=== PATIENT | male | born 1970 | race Caucasian/White ===

== ENCOUNTER 2017-02-03 09:32 | Emergency (ER) | payer SELFPAY ==
[~2017-02-03] VITALS: Ht 180.3 cm; Wt 117.9 kg
[~2017-02-03 09:32] MED LIST: AC325T PO; ACET-2267 PO; HYDR-2997 PO; HYDR-3720 PO; IBUP200T48 PO; PANT40TA3 PO
[2017-02-03] MEDS ORDERED: NS IV 1000 ML 1,000 ML IV ONE ×2 (10:04→11:20)
--- NOTE | 2017-02-03 10:11 | ED Syncope ---
General Chief Complaint: Dizziness/Syncope Stated Complaint: SYNCOPE Nursing Triage Note: PT STATES HAS BEEN HAVING SYNCOPAL EPISODES FOR A COUPLE WEEKS Source of Information: Patient Exam Limitations: No Limitations History of Present Illness Time Seen by Provider: 09:57 Initial Comments Here with report of syncopal episode that he believed occurred today. States he was sitting on the couch and thinks he passed out first few seconds. He was seen at [place] couple weeks ago for the same states she's had several episodes in between. He was instructed to follow-up with a web consultant because he apparently had low heart rate at nighttime noted on a Holter monitor. He states he doesn't have insurance and is unable to get and at this point. Reports that he feels like is in a pass out right now. Reports eating and drinking okay. He did eat breakfast today. He reports having dizziness and episodes for the last 2 weeks. States this is all been fairly persistent. Timing/Prior Episodes: Recent History, Single Episode Today Symptoms Prior to Episode: Lightheadedness Precipitating Factors: None Loss of Consciousness: Brief (Seconds) Current Symptoms: No Chest Pain, No Headache, No Injury, Lightheadedness, Weakness Allergies and Home Medications Allergies Uncoded Allergies: UNKNOWN ANTI-NAUSEA (Allergy, Mild, 03/20/15) JITTERY/ANXIOUS possibly phenergan Home Medications Unable to Obtain Active Prescriptions or Reported Meds Constitutional: see HPI, No chills, No fever, weakness EENTM: no symptoms reported Respiratory: no symptoms reported Cardiovascular: see HPI, No chest pain, No palpitations, syncope Gastrointestinal: No nausea, No vomiting Genitourinary: no symptoms reported Musculoskeletal: no symptoms reported Skin: no symptoms reported Psychiatric/Neurological: See HPI All Other Systems Reviewed Negative Unless Noted: Yes Past Saenzto-Sbtirj-Fyktjz Hx Patient Social History Alcohol Use: Occasionally Uses Recreational Drug Use: No Smoking Status: Never a Smoker Recent Foreign Travel: No Contact w/Someone Who Travel: No Recent Infectious Disease Expo: No Recent Hopitalizations: No (for kidney stones) Seasonal Allergies Seasonal Allergies: No Surgeries HX Surgeries: Yes (BILATERAL INGUINAL HERNIA REPAIR) Surgeries: Abdominal Respiratory Hx Respiratory Disorders: No Cardiovascular Hx Cardiac Disorders: No Cardiac Disorders: Heart Murmur, Hypertension Neurological Hx Neurological Disorders: No Reproductive System Hx Reproductive Disorders: No Sexually Transmitted Disease: No HIV/AIDS: No Genitourinary Hx Genitourinary Disorders: No Gastrointestinal Hx Gastrointestinal Disorders: Yes Gastrointestinal Disorders: Gastrointestinal Bleed Musculoskeletal Hx Musculoskeletal Disorders: No Endocrine Hx Endocrine Disorders: No HEENT HX ENT Disorders: No Cancer Hx Cancer: No Psychosocial Hx Psychiatric Problems: No Integumentary HX Skin/Integumentary Disorder: No Blood Transfusions Hx Blood Disorders: No Adverse Reaction to a Blood Tr: No Reviewed Nursing Assessment Reviewed/Agree w Nursing PMH: Yes Family Medical History Significant Family History: Heart Disease Physical Exam Vital Signs Vital Sign - Last 12Hours 02/03/17 09:50 Temp 98.4 Pulse 85 Resp 14 B/P (MAP) 140/97 Pulse Ox 96 Capillary Refill : Less Than 3 Seconds General Appearance: No Apparent Distress, WD/WN HEENT: PERRL/EOMI, Pharynx Normal Neck: Non Tender, Supple Cardiovascular: Regular Rate, Rhythm, No Murmur Respiratory: Lungs Clear, Normal Breath Sounds Gastrointestinal: Non Tender, Soft Back: Normal Inspection, No CVA Tenderness, No Vertebral Tenderness Extremities: Non Tender, No Calf Tenderness, No Pedal Edema Neurologic/Psychiatric: Alert, Oriented x3 Cranial Nerves: Normal Hearing, Normal Speech, PERRL Coordination/Gait: Normal Gait Motor/Sensory: No Motor Deficit, No Sensory Deficit Skin: Normal Color, Warm/Dry Progress/Results/Core Measures Results/Orders Lab Results Laboratory Tests Test 02/03/17 10:10 02/03/17 11:30 Range/Units White Blood Count 6.1 4.3-11.0 10^3/uL Red Blood Count 5.38 4.35-5.85 10^6/uL Hemoglobin 16.3 13.3-17.7 G/DL Hematocrit 50 40-54 % Mean Corpuscular Volume 94 80-99 FL Mean Corpuscular Hemoglobin 30 25-34 PG Mean Corpuscular Hemoglobin Concent 32 32-36 G/DL Red Cell Distribution Width 13.3 10.0-14.5 % Platelet Count 206 130-400 10^3/uL Mean Platelet Volume 11.3 H 7.4-10.4 FL Neutrophils (%) (Auto) 64 42-75 % Lymphocytes (%) (Auto) 20 12-44 % Monocytes (%) (Auto) 12 0-12 % Eosinophils (%) (Auto) 2 0-10 % Basophils (%) (Auto) 1 0-10 % Neutrophils # (Auto) 3.9 1.8-7.8 X 10^3 Lymphocytes # (Auto) 1.2 1.0-4.0 X 10^3 Monocytes # (Auto) 0.8 0.0-1.0 X 10^3 Eosinophils # (Auto) 0.1 0.0-0.3 10^3/uL Basophils # (Auto) 0.1 0.0-0.1 10^3/uL D-Dimer 0.29 0.00-0.49 UG/ML Sodium Level 141 135-145 MMOL/L Potassium Level 4.7 3.6-5.0 MMOL/L Chloride Level 111 H 98-107 MMOL/L Carbon Dioxide Level 21 21-32 MMOL/L Anion Gap 9 5-14 MMOL/L Blood Urea Nitrogen 15 7-18 MG/DL Creatinine 1.32 H 0.60-1.30 MG/DL Estimat Glomerular Filtration Rate 58 BUN/Creatinine Ratio 11 Glucose Level 91 70-105 MG/DL Calcium Level 10.8 H 8.5-10.1 MG/DL Magnesium Level 2.5 H 1.8-2.4 MG/DL Total Bilirubin 0.9 0.1-1.0 MG/DL Aspartate Amino Transf (AST/SGOT) 25 5-34 U/L Alanine Aminotransferase (ALT/SGPT) 25 0-55 U/L Alkaline Phosphatase 132 40-136 U/L Troponin I < 0.30 <0.30 NG/ML Total Protein 7.2 6.4-8.2 G/DL Albumin 4.0 3.2-4.5 G/DL Thyroid Stimulating Hormone (TSH) 1.24 0.35-4.94 UIU/ML Urine Color YELLOW Urine Clarity CLEAR Urine pH 7 5-9 Urine Specific Matador 1.015 L 1.016-1.022 Urine Protein NEGATIVE NEGATIVE Urine Glucose (UA) NEGATIVE NEGATIVE Urine Ketones NEGATIVE NEGATIVE Urine Nitrite NEGATIVE NEGATIVE Urine Bilirubin NEGATIVE NEGATIVE Urine Urobilinogen NORMAL NORMAL MG/DL Urine Leukocyte Esterase NEGATIVE NEGATIVE Urine RBC (Auto) NEGATIVE NEGATIVE Urine RBC NONE /HPF Urine WBC NONE /HPF Urine Squamous Epithelial Cells NONE /HPF Urine Crystals PRESENT H /LPF Urine Amorphous Sediment LARGE BERNARDO URATES H /LPF Urine Bacteria NEGATIVE /HPF Urine Casts NONE /LPF Urine Mucus NEGATIVE /LPF Urine Culture Indicated NO My Orders Orders - GANESH RODRIGUEZ MD Orthostatic Vital Signs (02/03/17 10:04) Ekg Tracing (02/03/17 10:04) Monitor-Rhythm Ecg Trace Only (02/03/17 10:04) Cbc With Automated Diff (02/03/17 10:04) Comprehensive Metabolic Panel (02/03/17 10:04) Magnesium (02/03/17 10:04) Thyroid Stimulating Hormone (02/03/17 10:04) Troponin I (02/03/17 10:04) Saline Lock/Iv-Start (02/03/17 10:04) Ns Iv 1000 Ml (Sodium Chloride 0.9%) (02/03/17 10:04) Chest Pa/Lat (2 View) (02/03/17 10:04) Ua Culture If Indicated (02/03/17 10:11) Fibrin Degradation Products (02/03/17 11:10) Ns Iv 1000 Ml (Sodium Chloride 0.9%) (02/03/17 11:20) Ct Head Wo (02/03/17 12:33) Medications Given in ED Current Medications Medications Dose Ordered Sig/Mello Route Start Time Stop Time Status Last Admin Dose Admin Sodium Chloride 1,000 ml @ 0 mls/hr Q0M ONCE IV 02/03/17 10:04 02/03/17 10:07 DC 02/03/17 10:29 1,000 MLS/HR Sodium Chloride 1,000 ml @ 0 mls/hr Q0M ONCE IV 02/03/17 11:20 02/03/17 11:21 DC 02/03/17 11:25 1,000 MLS/HR Vital Signs/I&O Vital Sign - Last 12Hours 02/03/17 02/03/17 09:50 10:10 Temp 98.4 Pulse 85 69 87 99 Resp 14 B/P (MAP) 140/97 Pulse Ox 96 Blood Pressure Mean: 111 Progress Note : Progress Note Seen and evaluated. IV, labs, EKG and chest x-ray ordered. Normal saline 1 L bolus. Orthostatic vital signs ordered prior to IV fluids. Monitor patient. Patient received second 1 L bolus of normal saline as he was unable to urinate. 1230: No significant findings on labs. He has had some workup done and will need follow-up we will get CT of the head and evaluate findings there. Monitor patient. 1340: No acute findings on CT. Overall still doing a little better. Discharged home with return precautions. Patient verbalize understanding instructions and agreement with plan. ECG Initial ECG Impression Date: Feb 03, 2017 Initial ECG Impression Time: 10:18 Initial ECG Rate: 69 Initial ECG Rhythm: Normal Sinus Comment Sinus rhythm with leftward axis. No evidence of ST elevation MO. Similar to previous of 12/16/15. Interpreted by me. Diagnostic Imaging Diagonstic Imaging: Xray Plain Films/CT/US/NM/MRI: chest Comments NAME: [facility] REC#: [id number] PT STATUS: REG ER : 1970 PHYSICIAN: GANESH RODRIGUEZ MD ADMIT DATE: 02/03/17/ER Signed Date of Exam: 02/03/17 CHEST PA/LAT (2 VIEW) INDICATION: Syncopal episodes. COMPARISON: 12/14/2015 FINDINGS: 2 views of the chest were obtained. Heart size is enlarged, but unchanged. There is no central venous congestion. No pneumothorax or pleural fluid is suspected. Lung volumes are low. Allowing for this, lungs appear clear. No osseous abnormality is suspected. IMPRESSION: Stable borderline cardiomegaly. No new or acute abnormality is seen when compared to the prior study. Dictated by: Dictated on workstation # [id number] Dict: 02/03/17 1047 Trans: 02/03/17 1059 [id number] Interpreted by: JANE LUNA DO Electronically signed by:JANE LUNA DO 02/03/17 1059 Diagonstic Imaging: CT Plain Films/CT/US/NM/MRI: head Comments [facility] [place] NAME: [facility] REC#: [id number] PT STATUS: REG ER : 1970 PHYSICIAN: GANESH RODRIGUEZ MD ADMIT DATE: 02/03/17/ER Draft Date of Exam:02/03/17 CT HEAD WO PROCEDURE: CT head without contrast. TECHNIQUE: Multiple contiguous axial images were obtained through the brain without the use of intravenous contrast. INDICATION: Syncopal episodes. No comparison is available. FINDINGS: There is no CT demonstration of acute intracranial hemorrhage. There is no evidence of intracranial mass effect or hydrocephalus. There is no abnormal extra-axial fluid collection. Basilar cisterns patent. The posterior fossa is unremarkable. Mastoid air cells appear clear. Visualized paranasal sinuses clear. Orbital contents unremarkable. No acute calvarial abnormality is demonstrated. IMPRESSION: No CT evidence of an acute intracranial abnormality. Dictated on workstation # [id number] Dict: 02/03/17 1247 Trans: 02/03/17 1252 [id number] Interpreted by: PABLITO BETANCOURT MD Electronically signed by: Departure Impression Impression: Primary Impression: Dizziness Additional Impression: Syncope Qualified Codes: R55 - Syncope and collapse Disposition: 01 HOME, SELF-CARE Condition: Stable Departure-Patient Inst. Decision time for Depature: 13:43 Referrals: [facility] (PCP/Family) Primary Care Physician ZEKE RODNEY MD Patient Instructions: Syncope (Fainting) (DC) Add. Discharge Instructions: All discharge instructions reviewed with patient and/or family. Voiced understanding. Drink plenty of fluids and eat a normal diet. Follow-up with Dr. Rodney for recheck and further evaluation. Return for worse pain, fever, vomiting, weakness, breathing problems or other concerns as needed. Scripts Unable to Obtain Active Prescriptions or Reported Meds Copy Copies To 1: ZEKE RODNEY MD, TIMOTHY D MD Feb 03, 2017 10:11
[2017-02-03 10:21] LABS: BASOPHILS # (AUTO) 0.1 10^3/uL (0.0-0.1); BASOPHILS % (AUTO) 1 % (0-10); EOSINOPHILS # (AUTO) 0.1 10^3/uL (0.0-0.3); EOSINOPHILS % (AUTO) 2 % (0-10); LYMPHOCYTES # (AUTO) 1.2 X 10^3 (1.0-4.0); LYMPHOCYTES % (AUTO) 20 % (12-44); MEAN CORPUSCULAR HEMOGLOBIN 30 PG (25-34); MEAN CORPUSCULAR HGB CONC 32 G/DL (32-36); MEAN CORPUSCULAR VOLUME 94 FL (80-99); MEAN PLATELET VOLUME 11.3 FL (7.4-10.4); MONOCYTES # (AUTO) 0.8 X 10^3 (0.0-1.0); MONOCYTES % (AUTO) 12 % (0-12); NEUTROPHILS # (AUTO) 3.9 X 10^3 (1.8-7.8); NEUTROPHILS % (AUTO) 64 % (42-75); PLATELET COUNT 206 10^3/uL (130-400); RED BLOOD COUNT 5.38 10^6/uL (4.35-5.85); RED CELL DISTRIBUTION WIDTH 13.3 % (10.0-14.5); WHITE BLOOD COUNT 6.1 10^3/uL (4.3-11.0)
[2017-02-03 10:38] LABS: ALANINE AMINOTRANSFERASE 25 U/L (0-55); ANION GAP 9 MMOL/L (5-14); ASPARTATE AMINO TRANSFERASE 25 U/L (5-34); BILIRUBIN,TOTAL 0.9 MG/DL (0.1-1.0); BLOOD UREA NITROGEN 15 MG/DL (7-18); BUN/CREATININE RATIO 11; CALCIUM 10.8 MG/DL (8.5-10.1); CARBON DIOXIDE 21 MMOL/L (21-32); CHLORIDE 111 MMOL/L (98-107); CREATININE SERUM 1.32 MG/DL (0.60-1.30); GFR ESTIMATED 58; GLUCOSE 91 MG/DL (70-105); MAGNESIUM 2.5 MG/DL (1.8-2.4); POTASSIUM 4.7 MMOL/L (3.6-5.0); SODIUM 141 MMOL/L (135-145); TOTAL PROTEIN 7.2 G/DL (6.4-8.2)
[2017-02-03 10:57] LABS: THYROID STIMULATING HORMONE 1.24 UIU/ML (0.35-4.94); TROPONIN I < 0.30 NG/ML (<0.30)
--- NOTE | 2017-02-03 10:59 | Diagnostic Imaging Report ---
INDICATION: Syncopal episodes. COMPARISON: 12/14/2015 FINDINGS: 2 views of the chest were obtained. Heart size is enlarged, but unchanged. There is no central venous congestion. No pneumothorax or pleural fluid is suspected. Lung volumes are low. Allowing for this, lungs appear clear. No osseous abnormality is suspected. IMPRESSION: Stable borderline cardiomegaly. No new or acute abnormality is seen when compared to the prior study. Dictated by: Dictated on workstation # [id number]
[2017-02-03 11:36] LABS: BILIRUBIN,URINE NEGATIVE (NEGATIVE); KETONES,URINE NEGATIVE (NEGATIVE); LEUKOCYTE ESTERASE ,URINE NEGATIVE (NEGATIVE); NITRITE,URINE NEGATIVE (NEGATIVE); PH,URINE 7 (5-9); PROTEIN,URINE NEGATIVE (NEGATIVE); UROBILINOGEN,URINE NORMAL (NORMAL)
--- NOTE | 2017-02-03 12:52 | Diagnostic Imaging Report ---
PROCEDURE: CT head without contrast. TECHNIQUE: Multiple contiguous axial images were obtained through the brain without the use of intravenous contrast. INDICATION: Syncopal episodes. No comparison is available. FINDINGS: There is no CT demonstration of acute intracranial hemorrhage. There is no evidence of intracranial mass effect or hydrocephalus. There is no abnormal extra-axial fluid collection. Basilar cisterns patent. The posterior fossa is unremarkable. Mastoid air cells appear clear. Visualized paranasal sinuses clear. Orbital contents unremarkable. No acute calvarial abnormality is demonstrated. IMPRESSION: No CT evidence of an acute intracranial abnormality. Dictated by: Dictated on workstation # [id number]
[2017-02-03 13:51] VITALS: BP 120/79
--- OUTSIDE RECORDS SUMMARY | 2017-03-11 04:46 | XMS REPORT | Continuity of Care Document ---
Author Author [facility] Organization [facility] Address Unknown Phone Unavailable Allergies Active Description Code Type Severity Reaction Onset Reported/Identified Relationship to Patient Clinical Status Yes UNKNOWN ANTI-NAUSEA UNKNOWN ANTI- NAUSEA Mild N/A 03/20/2015 Medications Problems Date Dx Coded Attending Type Code Diagnosis Diagnosed By 03/18/2012 Ot 592.1 CALCULUS OF URETER 03/18/2012 Ot 724.5 BACKACHE NOS 01/11/2013 Ot 724.2 LUMBAGO 03/20/2015 MARCELLA DAVIS DO Ot 569.3 RECTAL ANAL HEMORRHAGE 04/01/2015 SADA RODRIGUEZ MD Ot 592.1 CALCULUS OF URETER 04/01/2015 SADA RODRIGUEZ MD Ot 789.03 ABDOMINAL PAIN, RIGHT LOWER QUADRANT 12/16/2015 ZEKE HOPKINS MD Ot E66.9 OBESITY, UNSPECIFIED 12/16/2015 ZEKE HOPKINS MD Ot E78.5 HYPERLIPIDEMIA, UNSPECIFIED 12/16/2015 ZEKE HOPKINS MD Ot I10 ESSENTIAL (PRIMARY) HYPERTENSION 12/16/2015 ZEKE HOPKINS MD Ot I25.10 ATHSCL HEART DISEASE OF [place] CORONARY 12/16/2015 ZEKE HOPKINS MD Ot N20.2 CALCULUS OF KIDNEY WITH CALCULUS OF URET 12/16/2015 ZEKE HOPKINS MD Ot R06.00 DYSPNEA, UNSPECIFIED 12/16/2015 ZEKE HOPKINS MD Ot R07.89 OTHER CHEST PAIN 12/16/2015 ZEKE HOPKINS MD Ot R94.39 ABNORMAL RESULT OF OTHER CARDIOVASCULAR 12/16/2015 ZEKE HOPKINS MD Ot Z68.37 BODY MASS INDEX (BMI) 37.0-37.9, ADULT 12/16/2015 ZEKE HOPKINS MD Ot Z82.49 FAMILY HX OF ISCHEM HEART DIS AND OTH DI 02/03/2017 GANESH RODRIGUEZ MD Ot I10 ESSENTIAL (PRIMARY) HYPERTENSION 02/03/2017 GANESH RODRIGUEZ MD, Ot I51.7 CARDIOMEGALY 02/03/2017 GANESH RODRIGUEZ MD, Ot R42 DIZZINESS AND GIDDINESS 02/03/2017 GANESH RODRIGUEZ MD, Ot R55 SYNCOPE AND COLLAPSE Procedures Results Test Result Range Complete blood count (CBC) with automated white blood cell (WBC) differential - 02/03/17 10:10 Blood leukocytes automated count (number/volume) 6.1 10*3/ uL 4.3-11.0 Blood erythrocytes automated count (number/volume) 5.38 10*6 /uL 4.35-5.85 Venous blood hemoglobin measurement (mass/volume) 16.3 g/dL 13.3-17.7 Blood hematocrit (volume fraction) 50 % 40-54 Automated erythrocyte mean corpuscular volume 94 [foz_us] 80-99 Automated erythrocyte mean corpuscular hemoglobin (mass per erythrocyte) 30 pg 25-34 Automated erythrocyte mean corpuscular hemoglobin concentration measurement ( mass/volume) 32 g/dL 32-36 Automated erythrocyte distribution width ratio 13.3 % 10.0-14.5 Automated blood platelet count (count/volume) 206 10*3/uL 130-400 Automated blood platelet mean volume measurement 11.3 [foz_ us] 7.4-10.4 Automated blood neutrophils/100 leukocytes 64 % 42-75 Automated blood lymphocytes/100 leukocytes 20 % 12-44 Blood monocytes/100 leukocytes 12 % 0-12 Automated blood eosinophils/100 leukocytes 2 % 0-10 Automated blood basophils/100 leukocytes 1 % 0-10 Blood neutrophils automated count (number/volume) 3.9 10*3 1.8-7.8 Blood lymphocytes automated count (number/volume) 1.2 10*3 1.0-4.0 Blood monocytes automated count (number/volume) 0.8 10*3 0.0-1.0 Automated eosinophil count 0.1 10*3/uL 0.0-0.3 Automated blood basophil count (count/volume) 0.1 10*3/uL 0.0-0.1 Comprehensive metabolic panel - 02/03/17 10:10 Serum or plasma sodium measurement (moles/volume) 141 mmol/ L 135-145 Serum or plasma potassium measurement (moles/volume) 4.7 mmol/L 3.6-5.0 Serum or plasma chloride measurement (moles/volume) 111 mmol /L 98-107 Carbon dioxide 21 mmol/L 21-32 Serum or plasma anion gap determination (moles/volume) 9 mmol/L 5-14 Serum or plasma urea nitrogen measurement (mass/volume) 15 mg/dL 7-18 Serum or plasma creatinine measurement (mass/volume) 1.32 mg /dL 0.60-1.30 Serum or plasma urea nitrogen/creatinine mass ratio 11 NRG Serum or plasma creatinine measurement with calculation of estimated glomerular filtration rate 58 NRG Serum or plasma glucose measurement (mass/volume) 91 mg/dL 70-105 Serum or plasma calcium measurement (mass/volume) 10.8 mg/ dL 8.5-10.1 Serum or plasma total bilirubin measurement (mass/volume) 0.9 mg/dL 0.1-1.0 Serum or plasma alkaline phosphatase measurement (enzymatic activity/volume) 132 U/L 40-136 Serum or plasma aspartate aminotransferase measurement (enzymatic activity/ volume) 25 U/L 5-34 Serum or plasma alanine aminotransferase measurement (enzymatic activity/volume ) 25 U/L 0-55 Serum or plasma protein measurement (mass/volume) 7.2 g/dL 6.4-8.2 Serum or plasma albumin measurement (mass/volume) 4.0 g/dL 3.2-4.5 Magnesium - 02/03/17 10:10 Magnesium 2.5 mg/dL 1.8-2.4 Serum or plasma troponin i.cardiac measurement (mass/volume) - 02/03/17 10:10 Serum or plasma troponin i.cardiac measurement (mass/volume) < ng/mL <0.30 THYROID STIMULATING HORMONE - 02/03/17 10:10 THYROID STIMULATING HORMONE 1.24 u[iU]/mL 0.35-4.94 Fibrin D-dimer FEU measurement in platelet poor plasma (mass/volume) - 10:10 Fibrin D-dimer FEU measurement in platelet poor plasma (mass/volume) 0.29 ug/mL 0.00-0.49 Complete urinalysis with reflex to culture - 02/03/17 11:30 Urine color determination YELLOW NRG Urine clarity determination CLEAR NRG Urine pH measurement by test strip 7 5- 9 Specific gravity of urine by test strip 1.015 1.016-1.022 Urine protein assay by test strip, semi-quantitative NEGATIVE NEGATIVE Urine glucose detection by automated test strip NEGATIVE NEGATIVE Erythrocytes detection in urine sediment by light microscopy NEGATIVE NEGATIVE Urine ketones detection by automated test strip NEGATIVE NEGATIVE Urine nitrite detection by test strip NEGATIVE NEGATIVE Urine total bilirubin detection by test strip NEGATIVE NEGATIVE Urine urobilinogen measurement by automated test strip (mass/volume) NORMAL NORMAL Urine leukocyte esterase detection by dipstick NEGATIVE NEGATIVE Automated urine sediment erythrocyte count by microscopy (number/high power field) NONE NRG Automated urine sediment leukocyte count by microscopy (number/high power field ) NONE NRG Bacteria detection in urine sediment by light microscopy NEGATIVE NRG Squamous epithelial cells detection in urine sediment by light microscopy NONE NRG Crystals detection in urine sediment by light microscopy PRESENT NRG Casts detection in urine sediment by light microscopy NONE NRG Mucus detection in urine sediment by light microscopy NEGATIVE NRG Complete urinalysis with reflex to culture NO NRG Amorphous sediment detection in urine sediment by light microscopy LARGE BERNARDO URATES NRG Encounters ACCT No. Visit Date/Time Discharge Status Pt. Type Provider Facility Loc./Unit Complaint [id number] 02/03/2017 09:33:00 2016 13:51:00 DIS Emergency GANESH RODRIGUEZ MD [facility] ER SYNCOPE [id number] 12/14/2015 11:35:00 2015 20:08:00 DIS Outpatient KELLIE KC, ZEKE Felder [facility] CATH CHEST PAIN [id number] 04/01/2015 10:03:00 2014 15:21:00 DIS Emergency SADA RODRIGUEZ MD [facility] ER RIGHT SIDE PAIN [id number] 03/20/2015 10:09:00 2014 12:38:00 DIS Emergency RYAN DOMARCELLA K [facility] ER VOIDING BLOOD [id number] 03/05/2017 11:15:00 PEN Preadmit YOHANA NOEL APRN [facility] CARD R55 [id number] 03/05/2017 10:00:00 PEN Preadmit YOHANA NOEL APRN [facility] CARD I10,R55 [id number] 01/11/2013 08:35:00 Document Registration [id number] 03/17/2012 12:16:00 Document Registration
== END 2017-02-03 13:51 | disposition home or self-care (01) ==
LOC: EDUNIT# 09:32 → ER 09:33
DX: R55 Syncope and collapse (principal); R42 Dizziness and giddiness; I51.7 Cardiomegaly; I10 Essential (primary) hypertension
CPT/HCPCS: 36415; 70450; 71020; 80053; 81000; 83735; 84443; 84484; 85025; 85379; 93005; 93041; 96360; 96361

== ENCOUNTER 2017-12-30 19:18 | Emergency (ER) | payer SELFPAY ==
[~2017-12-30] VITALS: Ht 180.3 cm; Wt 118.1 kg
--- OUTSIDE RECORDS SUMMARY | 2017-12-30 19:43 | XMS REPORT ---
Author Author YOHANA NOEL Organization [facility] Address [address] [place] [address] Care Team Providers Care Orientor Name Role Phone YOHANA NOEL Unavailable PROBLEMS Type Condition ICD9-CM Code CQV68-SD Code Onset Dates Condition Status SNOMED Code Problem History of elevated blood pressure while in hospital Z86.79 Active 955673239 Problem Chest discomfort R07.89 Active 334837093 Problem Hyperlipidemia LDL goal <100 E78.5 Active 92011884 Problem Syncope and collapse R55 Active 711531145 Problem Dyspnea R06.00 Active 002979945 Problem Palpitation R00.2 Active 43837519 Problem Essential hypertension I10 Active 16343094 Problem Fatigue R53.83 Active 38967217 ALLERGIES No Information SOCIAL HISTORY Never Assessed PLAN OF CARE VITAL SIGNS MEDICATIONS Medication Instructions Dosage Frequency Start Date End Date Duration Status Atorvastatin Calcium 10 mg Orally Once a day 1 tablet 24h February, 30 day(s) Active Metformin HCl 500 mg Orally Once a day 1 tablet with evening meal 24h February, 30 day(s) Active RESULTS No Results PROCEDURES No Known procedures IMMUNIZATIONS No Known Immunizations MEDICAL (GENERAL) HISTORY Type Description Date Medical History heart murmur Surgical History inguinal hernia repair Surgical History Heart Cath and Treadmill Normal [facility] Hospitalization History [facility] Chest Pain x3 nights
--- OUTSIDE RECORDS SUMMARY | 2017-12-30 19:43 | XMS REPORT ---
Author Author SUDHAKAR RANGEL Organization [facility] Address [address] [place] [address] Care Team Providers Care Budget Officer Name Role Phone SUDHAKAR RANGEL Unavailable PROBLEMS Type Condition ICD9-CM Code [id number] Code Onset Dates Condition Status SNOMED Code Problem History of elevated blood pressure while in hospital Z86.79 Active 628407952 Problem Chest discomfort R07.89 Active 686998142 Problem Hyperlipidemia LDL goal <100 E78.5 Active 51794472 Problem Syncope and collapse R55 Active 764705234 Problem Dyspnea R06.00 Active 368085991 Problem Palpitation R00.2 Active 10086982 Problem Essential hypertension I10 Active 22720790 Problem Fatigue R53.83 Active 16232376 ALLERGIES Substance Reaction Event Type Date Status Zofran ODT Unknown Drug Allergy February, Active SOCIAL HISTORY Never Assessed PLAN OF CARE Activity Details Follow Up 2 months Reason:BP VITAL SIGNS Height 71 in 2017-03-21 Weight 272.7 lbs 2017-03-21 Temperature 98.3 degrees Fahrenheit 2017-03-21 Heart Rate 84 bpm 2017-03-21 Respiratory Rate 20 2017-03-21 BMI 38.03 kg/m2 2017-03-21 Blood pressure systolic 122 mmHg 2017-03-21 Blood pressure diastolic 78 mmHg 2017-03-21 MEDICATIONS Medication Instructions Dosage Frequency Start Date End Date Duration Status Atorvastatin Calcium 10 mg Orally Once a day 1 tablet 24h February, 30 day(s) Active Metformin HCl 500 mg Orally Once a day 1 tablet with evening meal 24h February, 30 day(s) Active Lisinopril 10 mg Orally Once a day 1 tablet 24h 30 day(s) Active RESULTS No Results PROCEDURES No Known procedures IMMUNIZATIONS No Known Immunizations MEDICAL (GENERAL) HISTORY Type Description Date Medical History heart murmur Surgical History inguinal hernia repair Surgical History Heart Cath and Treadmill Normal [facility] Hospitalization History [facility] Chest Pain x3 nights
--- OUTSIDE RECORDS SUMMARY | 2017-12-30 19:44 | XMS REPORT | Continuity of Care Document ---
Author Author [facility] Organization [facility] Address Unknown Phone Unavailable Allergies Active Description Code Type Severity Reaction Onset Reported/Identified Relationship to Patient Clinical Status Yes UNKNOWN ANTI-NAUSEA UNKNOWN ANTI-NAUSEA Mild N/A 03/20/2015 Medications There is no data. Problems Date Dx Coded Attending Type Code [...] MD Ot I25.10 ATHSCL HEART DISEASE OF [place] CORONARY 12/16/2015 ZEKE HOPKINS MD Ot N20.2 [...] MD Ot I10 ESSENTIAL (PRIMARY) HYPERTENSION 02/03/2017 MICHAEL KC, GANESH Rader Ot I51.7 CARDIOMEGALY 02/03/2017 MICHAEL KC, GANESH Rader Ot R42 DIZZINESS AND GIDDINESS 02/03/2017 MICHAEL KC, GANESH Rader Ot R55 SYNCOPE AND COLLAPSE Procedures There is no data. Results Test Result Range Complete blood count (CBC) with automated white blood cell (WBC) differential - 02/03/17 10:10 Blood leukocytes automated count (number/volume) 6.1 10*3/uL 4.3-11.0 Blood erythrocytes automated count (number/volume) 5.38 10*6/uL 4.35-5.85 Venous blood hemoglobin measurement (mass/volume) 16.3 [...] Automated blood platelet mean volume measurement 11.3 [foz_us] 7.4-10.4 Automated blood neutrophils/100 leukocytes 64 % [...] Serum or plasma sodium measurement (moles/volume) 141 mmol/L 135-145 Serum or plasma potassium measurement (moles/volume) 4.7 mmol/L 3.6-5.0 Serum or plasma chloride measurement (moles/volume) 111 mmol/L 98-107 Carbon dioxide 21 mmol/L 21-32 Serum or plasma anion gap determination (moles/volume) 9 mmol/L 5-14 Serum or plasma urea nitrogen measurement (mass/volume) 15 mg/dL 7-18 Serum or plasma creatinine measurement (mass/volume) 1.32 mg/dL 0.60-1.30 Serum or plasma urea nitrogen/creatinine mass ratio 11 NRG Serum or plasma creatinine measurement with calculation of estimated glomerular filtration rate 58 NRG Serum or plasma glucose measurement (mass/volume) 91 mg/dL 70-105 Serum or plasma calcium measurement (mass/volume) 10.8 mg/dL 8.5-10.1 Serum or plasma total bilirubin measurement [...] or plasma troponin i.cardiac measurement (mass/volume) < ng/ mL <0.30 THYROID STIMULATING HORMONE - 02/03/17 10:10 THYROID STIMULATING HORMONE 1.24 u[iU]/mL 0.35-4.94 Fibrin D-dimer FEU measurement in platelet poor plasma (mass/volume) - 10:10 Fibrin D-dimer FEU measurement in platelet poor plasma (mass/volume) 0.29 ug/mL 0.00-0.49 Complete urinalysis with reflex to culture - 02/03/17 11:30 Urine color determination YELLOW NRG Urine clarity determination CLEAR NRG Urine pH measurement by test strip 7 5-9 Specific gravity of urine by test strip 1.015 1.016- 1.022 Urine protein assay by test strip, semi-quantitative [...] Status Pt. Type Provider Facility Loc./Unit Complaint [id number] 03/05/2017 11:15:00 03/05/2017 23:59:59 CLS Preadmit YOHANA NOEL [facility]EN [facility] CARD R55 [id number] 03/05/2017 10:00:00 03/05/2017 23:59:59 CLS Preadmit YOHANA NOEL [place] CARD I10,R55 [id number] 02/03/2017 09:33:00 02/03/2017 13:51:00 DIS Emergency GANESH RODRIGUEZ MD [facility] ER SYNCOPE [id number] 12/14/2015 11:35:00 12/16/2015 20:08:00 DIS Outpatient KELLIE KC, ZEKE Felder [facility] CATH CHEST PAIN [id number] 04/01/2015 10:03:00 04/01/2015 15:21:00 DIS Emergency SADA RODRIGUEZ MD [facility] ER RIGHT SIDE PAIN [id number] 03/20/2015 10:09:00 03/20/2015 12:38:00 DIS Emergency MARCELLA DAVIS DO [facility] ER VOIDING BLOOD [id number] 12/30/2017 19:21:00 ACT Emergency MICHAEL KC, GANESH Rader [facility] ER R WRIST INJ [id number] 01/11/2013 08:35:00 Document Registration [id number] 03/17/2012 12:16:00 Document Registration
[2017-12-30 19:47] VITALS: BP 139/96
--- NOTE | 2017-12-30 20:21 | Diagnostic Imaging Report ---
Clinical indication: Patient with right wrist pain. No known injury. Exam: X-ray of the right wrist, 3 views. Comparison: None. Findings and impression: 1: There is a 3 mm x 1 mm radiodense metallic foreign object overlying the soft tissue region of the distal first proximal phalanx. Clinical correlation is suggested. 2: There is no evidence of acute fracture or dislocation. Otherwise, there is no significant bone or joint abnormality. Dictated by: Dictated on workstation # [id number]
--- NOTE | 2017-12-30 20:31 | ED Upper Extremity ---
General Chief Complaint: Upper Extremity Stated Complaint: R WRIST INJ Nursing Triage Note: c/o R wrist pain Nursing Sepsis Screen: No Definite Risk History of Present Illness Date Seen by Provider: Dec 30, 2017 Time Seen by Provider: 19:50 Initial Comments 47-year-old male reports falling today onto his right wrist. He denies previous history of injuries to his right hand, he is right-hand dominant. He denies taking any pain medication prior to arrival. He does report drinking several beers today, and alcohol can be smelled on the patient's breath. Onset: this afternoon Severity: mild Pain/Injury Location: right wrist Method of Injury: fell Modifying Factors: Improves With Rest Allergies and Home Medications Allergies Uncoded Allergies: UNKNOWN ANTI-NAUSEA (Allergy, Mild, 03/20/15) JITTERY/ANXIOUS possibly phenergan Home Medications Unable to Obtain Active Prescriptions or Reported Meds Patient Home Medication List Home Medication List Reviewed: Yes Constitutional: no symptoms reported, see HPI Musculoskeletal: see HPI, joint pain (right wrist) All Other Systems Reviewed Negative Unless Noted: Yes Past Qgmpmdv-Fecutl-Olnrke Hx Patient Social History Alcohol Use: Denies Use Recreational Drug Use: No Smoking Status: Never a Smoker Recent Foreign Travel: No Contact w/Someone Who Travel: No Recent Infectious Disease Expo: No Recent Hopitalizations: No (for kidney stones) Seasonal Allergies Seasonal Allergies: No Surgeries History of Surgeries: Yes (BILATERAL INGUINAL HERNIA REPAIR) Surgeries: Abdominal Respiratory History of Respiratory Disorde: No Cardiovascular History of Cardiac Disorders: No Cardiac Disorders: Heart Murmur, Hypertension Neurological History of Neurological Disord: No Reproductive System Hx Reproductive Disorders: No Sexually Transmitted Disease: No HIV/AIDS: No Gastrointestinal History of Gastrointestinal Di: Yes Gastrointestinal Disorders: Gastrointestinal Bleed Musculoskeletal History of Musculoskeletal Dis: No Endocrine History of Endocrine Disorders: No Cancer History of Cancer: No Psychosocial History of Psychiatric Problem: No Integumentary History of Skin or Integumenta: No Blood Transfusions History of Blood Disorders: No Adverse Reaction to a Blood Tr: No Reviewed Nursing Assessment Reviewed/Agree w Nursing PMH: Yes Family Medical History Significant Family History: Heart Disease Physical Exam Vital Signs Vital Signs - First Documented 12/30/17 19:47 Temp 98.2 Pulse 86 Resp 18 B/P (MAP) 139/96 (110) Pulse Ox 94 Capillary Refill : Less Than 3 Seconds General Appearance: WD/WN, no apparent distress Cardiovascular: normal peripheral pulses, regular rate, rhythm, no murmur Respiratory: chest non-tender, lungs clear, normal breath sounds Gastrointestinal: normal bowel sounds, non tender, soft Wrist: No abrasions, Yes bone tenderness (distal radius, right), Yes limited ROM (right wrist secondary to pain), No mass, Yes pain, Yes soft tissue tenderness (right wrist), Yes swelling Hand: normal inspection, non-tender, no evidence of injury, normal ROM, Right Neurologic/Tendon: normal sensation, normal motor functions, normal tendon functions Neurologic/Psychiatric: no motor/sensory deficits, alert, normal mood/affect, oriented x 3 Skin: normal color, warm/dry Progress/Results/Core Measures Results/Orders My Orders Orders - LIDYA BARTON Wrist, Right, 3 Views Or More (12/30/17 19:50) Vital Signs/I&O Vital Sign - Last 12Hours 12/30/17 19:47 Temp 98.2 Pulse 86 Resp 18 B/P (MAP) 139/96 (110) Pulse Ox 94 Blood Pressure Mean: 110 Progress Note : Time: 19:50 Progress Note Initial evaluation completed, recommended x-ray and reevaluation. 2030 patient returned from x-ray, patient walked to discharge and out of emergency department without contacting any employees. Registration staff reports he was with another person. Upon going into the parking lot the patient was not found to be present. Diagnostic Imaging Diagonstic Imaging: Xray Plain Films/CT/US/NM/MRI: other (right wrist) Comments NAME: NAYLA HESS [facility] REC#: [id number] PT STATUS: REG ER : 1970 PHYSICIAN: LIDYA BARTON ADMIT DATE: 12/30/17/ER Draft Date of Exam:12/30/17 WRIST, RIGHT, 3 VIEWS OR MORE Clinical indication: Patient with right wrist pain. No known injury. Exam: X-ray of the right wrist, 3 views. Comparison: None. Findings and impression: 1: There is a 3 mm x 1 mm radiodense metallic foreign object overlying the soft tissue region of the distal first proximal phalanx. Clinical correlation is suggested. 2: There is no evidence of acute fracture or dislocation. Otherwise, there is no significant bone or joint abnormality. Dictated on workstation # [id number] Dict: 12/30/172014 Trans: 12/30/172019 [facility] [id number] Interpreted by: KAYLEE HAMILTON MD Electronically signed by: Reviewed: Reviewed by Me (metallic foreign body at the distal phalanx of the right thumb, not at the area of the patient's tenderness at his wrists.) Departure Impression Impression: Primary Impression: Right wrist pain Disposition: 07 AGAINST MEDICAL ADVICE Condition: Stable Departure-Patient Inst. Decision time for Depature: 20:30 Referrals: [facility] (PCP/Family) Primary Care Physician Scripts Unable to Obtain Active Prescriptions or Reported Meds Copy Copies To 1: ADAM RAMEY MD, AMY ARNP Dec 30, 2017 20:31
== END 2017-12-30 20:32 | disposition left against medical advice (07) ==
LOC: EDUNIT# 19:18 → ER 19:21
DX: M25.531 Pain in right wrist (principal); I10 Essential (primary) hypertension; Z87.19 Personal history of other diseases of the digestive system; W19.XXXA Unspecified fall, initial encounter
CPT/HCPCS: 73110; 99282

== ENCOUNTER 2018-11-26 22:24 | Emergency (ER) | payer SELFPAY ==
[~2018-11-26] VITALS: Ht 180.3 cm; Wt 117.9 kg
--- OUTSIDE RECORDS SUMMARY | 2018-11-26 22:29 | XMS REPORT ---
Author Author ANKITA PERALES Organization [facility] Address [address] [place] [address] Care Team Providers Care Tubing Tester Name Role Phone ANKITA PERALES Unavailable PROBLEMS Type Condition ICD9-CM Code TGT69-IW Code Onset Dates Condition Status SNOMED Code Problem Hypercalcemia E83.52 Active 37157890 Problem Primary hypertension I10 Active 02884952 Problem Fatigue R53.83 Active 05623470 Problem Hyperlipidemia LDL goal <100 E78.5 Active 08306747 Problem Syncope and collapse R55 Active 756540587 ALLERGIES Substance Reaction Event Type Date Status Zofran ODT Unknown Drug Allergy Apr, Active ENCOUNTERS Encounter Location Date Diagnosis [place] [id number] [id number] [place] [address] May, Right lateral epicondylitis M77.11 [facility] [id number] [place] [address] 96376- 5848 May, [place] [id number] [place] [address] 76631- [address]87 Apr, [place] [address] [id number] [place] [address] 58640- 5362 Apr, Hypercalcemia E83.52 [facility] [id number] [place] [address] 34181- 8576 Apr, Primary hypertension I10 and Hypercalcemia E83.52 [facility] [id number] [place] [address] 38581- 3562 Apr, Primary hypertension I10 ; Lateral epicondylitis of right elbow M77.11 and Hyperlipidemia LDL goal <100 E78.5 [place] [id number] [place] [address] 92313- 5647 February, Essential hypertension I10 ; Pre-diabetes R73.03 ; Hyperlipidemia LDL goal <100 E78.5 and Abnormal EKG R94.31 [place] [id number] [place], [place] [phone] February, [place] [id number] [place] [address] 34924- 2585 Jan, Essential hypertension I10 and Syncope and collapse R55 [place] 350387- 1587 Dec, Chest discomfort R07.89 ; History of elevated blood pressure while in hospital Z86.79 ; Fatigue R53.83 ; Dyspnea R06.00 and Palpitation R00.2 [place] [id number] [place] [address] 95892- 2194 Dec, Chest discomfort R07.89 and History of elevated blood pressure while in hospital Z86.79 [place] [id number] [place] [address] 03859- 6168 February, Hematochezia 578.1 IMMUNIZATIONS No Known Immunizations SOCIAL HISTORY Never Assessed REASON FOR VISIT right side elbow pain shooting into shoulder and neck-EVELINE brito PLAN OF CARE Activity Details Follow Up prn elbow pain, 6 Months chronic conditions Reason: Future/Pending Procedure INJ TENDON SHEATH/LIGAMENT VITAL SIGNS Height 71 in 2018-05-21 Weight 266.7 lbs 2018-05-21 Temperature 97.8 degrees Fahrenheit 2018-05-21 Heart Rate 85 bpm 2018-05-21 Respiratory Rate 20 2018-05-21 BMI 37.19 kg/m2 2018-05-21 Blood pressure systolic 130 mmHg 2018-05-21 Blood pressure diastolic 98 mmHg 2018-05-21 MEDICATIONS Medication Instructions Dosage Frequency Start Date End Date Duration Status Metformin HCl 500 mg Orally Once a day 1 tablet with evening meal 24h February, 30 day(s) Active Atorvastatin Calcium 10 mg Orally Once a day 1 tablet 24h February, 30 day(s) Active Lisinopril 10 mg Orally Once a day 1 tablet 24h 30 day(s) Active RESULTS No Results PROCEDURES Procedure Date Ordered Result Body Site COMPREHEN METABOLIC PANEL May 21, 2018 LIPID PANEL May 21, 2018 INJ TENDON SHEATH/LIGAMENT May 21, 2018 INSTRUCTIONS MEDICATIONS ADMINISTERED No Known Medications MEDICAL (GENERAL) HISTORY Type Description Date Medical History heart murmur Medical History No showed cardiology appt x 3 2016 Surgical History inguinal hernia repair Surgical History Heart Cath and Treadmill Normal [facility] -2015 Hospitalization History [facility] Chest Pain x3 nights
--- OUTSIDE RECORDS SUMMARY | 2018-11-26 22:29 | XMS REPORT ---
Author Author ANKITA PERALES Organization [facility] Address [address] [place] [address] Care Team Providers Care Poultry Offal Worker Name Role Phone ANKITA PERALES Unavailable PROBLEMS Type Condition ICD9-CM Code UHO73-KA Code Onset Dates Condition Status SNOMED Code Problem Hypercalcemia E83.52 Active 32032394 Problem Primary hypertension I10 Active 74960718 Problem Fatigue R53.83 Active 51711316 Problem Hyperlipidemia LDL goal <100 E78.5 Active 85376130 Problem Syncope and collapse R55 Active 591478150 ALLERGIES No Information ENCOUNTERS Encounter Location Date Diagnosis [place] [address] [id number] [place] [address] 18926- 6047 May, Right lateral epicondylitis M77.11 [facility] [id number] [place] [address] 33909- 7451 May, [facility] [address] [address]- [address] Apr, [facility] [id number] [place] [address] 76450- 3110 Apr, Hypercalcemia E83.52 [facility] [id number] [place] [address] 78322- 3855 Apr, Primary hypertension I10 and Hypercalcemia E83.52 [facility] [id number] [place] [address] 30297- 3215 Apr, Primary hypertension I10 ; Lateral epicondylitis of right elbow M77.11 and Hyperlipidemia LDL goal <100 E78.5 [facility] [id number] [place] [address] 45625- 1634 February, Essential hypertension I10 ; Pre-diabetes R73.03 ; Hyperlipidemia LDL goal <100 E78.5 and Abnormal EKG R94.31 [place] [address] [place] [address] 09436- 3081 February, [place] [id number] [place] [address] 33943- 1528 Jan, Essential hypertension I10 and Syncope and collapse R55 [address] [address]- [address]68 Dec, Chest discomfort R07.89 ; History of elevated blood pressure while in hospital Z86.79 ; Fatigue R53.83 ; Dyspnea R06.00 and Palpitation R00.2 [place] [id number] [place] [address] 81667- 0825 Dec, Chest discomfort R07.89 and History of elevated blood pressure while in hospital Z86.79 [place] [address] [place] [address] 90243- 8714 February, Hematochezia 578.1 IMMUNIZATIONS No Known Immunizations SOCIAL HISTORY Never Assessed REASON FOR VISIT Lab (walk-in) PLAN OF CARE VITAL SIGNS MEDICATIONS Unknown Medications RESULTS No Results PROCEDURES Procedure Date Ordered Result Body Site ASSAY OF PARATHORMONE May 23, 2018 INSTRUCTIONS MEDICATIONS ADMINISTERED No Known Medications MEDICAL (GENERAL) HISTORY Type Description Date Medical History heart murmur Medical History No showed cardiology appt x 3 2016 Surgical History inguinal hernia repair Surgical History Heart Cath and Treadmill Normal [facility] -2015 Hospitalization History [facility] Chest Pain x3 nights
--- OUTSIDE RECORDS SUMMARY | 2018-11-26 22:29 | XMS REPORT ---
Author Author ANKITA PERALES Organization [facility] Address [address] [place] [address] Care Team Providers Care Press Operator Heavy Duty Name Role Phone ANKITA PERALES Unavailable PROBLEMS Type Condition ICD9-CM Code GXM65-CD Code Onset Dates Condition Status SNOMED Code Problem Hypercalcemia E83.52 Active 30725188 Problem Primary hypertension I10 Active 33446671 Problem Fatigue R53.83 Active 96863683 Problem Hyperlipidemia LDL goal <100 E78.5 Active 08999640 Problem Syncope and collapse R55 Active 590091534 ALLERGIES No Information ENCOUNTERS Encounter Location Date Diagnosis [place] [address] [address] [id number] [place] [address] 19104- 6143 May, Right lateral epicondylitis M77.11 [facility] [id number] [place] [address] 07598- 4440 May, [facility] [address] [address]- [address] Apr, [facility] [id number] [place] [address] 08783- 5623 Apr, Hypercalcemia E83.52 [facility] [id number] [place] [address] 59335- 6920 Apr, Primary hypertension I10 and Hypercalcemia E83.52 [facility] [id number] [place] [address] 65256- 8074 Apr, Primary hypertension I10 ; Lateral epicondylitis of right elbow M77.11 and Hyperlipidemia LDL goal <100 E78.5 [facility] [id number] [place] [address] 11275- 3979 February, Essential hypertension I10 ; Pre-diabetes R73.03 ; Hyperlipidemia LDL goal <100 E78.5 and Abnormal EKG R94.31 [place] [address] [place] [address] 91966- 6179 February, [place] [id number] [place] [address] 86936- 9153 Jan, Essential hypertension I10 and Syncope and collapse R55 [address] 477[address]- 5991 Dec, Chest discomfort R07.89 ; History of elevated blood pressure while in hospital Z86.79 ; Fatigue R53.83 ; Dyspnea R06.00 and Palpitation R00.2 [place] [address] 60472- 9791 Dec, Chest discomfort R07.89 and History of elevated blood pressure while in hospital Z86.79 [place] [id number] [place] [address] 12681- 0504 February, Hematochezia 578.1 IMMUNIZATIONS No Known Immunizations SOCIAL HISTORY Never Assessed REASON FOR VISIT Requests return call PLAN OF CARE VITAL SIGNS MEDICATIONS Unknown Medications RESULTS No Results PROCEDURES No Known procedures INSTRUCTIONS MEDICATIONS ADMINISTERED No Known Medications MEDICAL (GENERAL) HISTORY Type Description Date Medical History heart murmur Medical History No showed cardiology appt x 3 2016 Surgical History inguinal hernia repair Surgical History Heart Cath and Treadmill Normal [facility] -2015 Hospitalization History [facility] Chest Pain x3 nights
--- OUTSIDE RECORDS SUMMARY | 2018-11-26 22:29 | XMS REPORT ---
Author Author ANKITA PERALES Organization [facility] Address [address] [place] [address] Care Team Providers Care Retail General Manager Name Role Phone ANKITA PERALES Unavailable PROBLEMS Type Condition ICD9-CM Code YHB78-QI Code Onset Dates Condition Status SNOMED Code Problem Chronic obstructive pulmonary disease, unspecified COPD type J44.9 Active 64439388 Problem Hypercalcemia E83.52 Active 56676690 Problem Syncope and collapse R55 Active 466959185 Problem Fatigue R53.83 Active 73396624 Problem Primary hypertension I10 Active 10543926 Problem Hyperlipidemia LDL goal <100 E78.5 Active 78656625 ALLERGIES Substance Reaction Event Type Date Status Zofran ODT Unknown Drug Allergy Jul, Active ENCOUNTERS Encounter Location Date Diagnosis [place] [address] [address] Jul, Shortness of breath R06.02 and Chronic obstructive pulmonary disease, unspecified COPD type J44.9 [place] [address] [id number] [place] [address] 76692- 4139 May, Right lateral epicondylitis M77.11 [place] [id number] [place] [address] 79522- 6488 May, [facility] [id number] [place] [address] 15339- 1460 Apr, [place] [address] [address]- 3610 Apr, Hypercalcemia E83.52 [place] [id number] [place] [address] 44205- 1802 Apr, Primary hypertension I10 and Hypercalcemia E83.52 [place] [address] [phone]- 316 Apr, Primary hypertension I10 ; Lateral epicondylitis of right elbow M77.11 and Hyperlipidemia LDL goal <100 E78.5 [place] [id number] [place] [address] 938 February, Essential hypertension I10 ; Pre-diabetes R73.03 ; Hyperlipidemia LDL goal <100 E78.5 and Abnormal EKG R94.31 [place] [address]- [address] February, [place] [address] [place] [address]- 7083 Jan, Essential hypertension I10 and Syncope and collapse R55 [place] [id number] 202 Dec, Chest discomfort R07.89 ; History of elevated blood pressure while in hospital Z86.79 ; Fatigue R53.83 ; Dyspnea R06.00 and Palpitation R00.2 [place] [id number] [place] [address] 48794- 5028 Dec, Chest discomfort R07.89 and History of elevated blood pressure while in hospital Z86.79 [place] [id number] [place] [address] 61155- 8053 February, Hematochezia 578.1 IMMUNIZATIONS No Known Immunizations SOCIAL HISTORY Never Assessed REASON FOR VISIT Hosp f/u-KM brito, pt went to the ER a week ago, found out he had COPD, pt staes that is haing trouble breathing PLAN OF CARE Activity Details Follow Up prn Reason: VITAL SIGNS Height 71 in 2018-08-27 Weight 274.0 lbs 2018-08-27 Temperature 98.2 degrees Fahrenheit 2018-08-27 Heart Rate 80 bpm 2018-08-27 Respiratory Rate 18 2018-08-27 Oximetry on room air:96 % 2018-08-27 BMI 38.21 kg/m2 2018-08-27 Blood pressure systolic 130 mmHg 2018-08-27 Blood pressure diastolic 100 mmHg 2018-08-27 MEDICATIONS Medication Instructions Dosage Frequency Start Date End Date Duration Status Atorvastatin Calcium 10 mg Orally Once a day 1 tablet 24h February, 30 day(s) Not-Taking Lisinopril 10 mg Orally Once a day 1 tablet 24h 30 day(s) Active Stiolto Respimat 2.5-2.5 MCG/ACT Inhalation Once a day 2 puffs 24h Jul, 30 days Active Metformin HCl 500 mg Orally Once a day 1 tablet with evening meal 24h February, 30 day(s) Not-Taking RESULTS No Results PROCEDURES No Known procedures INSTRUCTIONS MEDICATIONS ADMINISTERED No Known Medications MEDICAL (GENERAL) HISTORY Type Description Date Medical History heart murmur Medical History No showed cardiology appt x 3 2016 Medical History hernia x2 Surgical History inguinal hernia repair Surgical History Heart Cath and Treadmill Normal [facility] Hospitalization History [facility] Chest Pain x3 nights Hospitalization History chest pain 08/19/2018
--- OUTSIDE RECORDS SUMMARY | 2018-11-26 22:29 | XMS REPORT ---
Author Author ANKITA PERALES Organization [facility] Address [address] [place] [address] Care Team Providers Care Nurse First Assist Name Role Phone ANKITA PERALES Unavailable PROBLEMS Type Condition ICD9-CM Code OFF74-LL Code Onset Dates Condition Status SNOMED Code Problem Hypercalcemia E83.52 Active 93545278 Problem Primary hypertension I10 Active 90713801 Problem Fatigue R53.83 Active 08969363 Problem Hyperlipidemia LDL goal <100 E78.5 Active 62994366 Problem Syncope and collapse R55 Active 812213561 ALLERGIES No Information ENCOUNTERS Encounter Location Date Diagnosis [place] [id number] [place] [phone]- [phone] May, Right lateral epicondylitis M77.11 [facility] [id number] [place] [address]- [address] May, [facility] [address] [phone] Apr, [facility] [id number] [place] [address] 77776- 0045 Apr, Hypercalcemia E83.52 [facility] [id number] [place] [address] 86137- 2533 Apr, Primary hypertension I10 and Hypercalcemia E83.52 [facility] [id number] [place] [address]73- 7792 Apr, Primary hypertension I10 ; Lateral epicondylitis of right elbow M77.11 and Hyperlipidemia LDL goal <100 E78.5 [facility] [id number] [place] [address] 87612- 0555 February, Essential hypertension I10 ; Pre-diabetes R73.03 ; Hyperlipidemia LDL goal <100 E78.5 and Abnormal EKG R94.31 [place] [address] [place] [address]177- 47[address] February, [place] [id number] [place] [address] 66188- [address]279 Jan, Essential hypertension I10 and Syncope and collapse R55 [address] [address]- [address] 30 Dec, 2015 Chest discomfort R07.89 ; History of elevated blood pressure while in hospital Z86.79 ; Fatigue R53.83 ; Dyspnea R06.00 and Palpitation R00.2 [place] [address] [address]- [address] Dec, Chest discomfort R07.89 and History of elevated blood pressure while in hospital Z86.79 [place] [id number] [place] [address] 80133- 8392 February, Hematochezia 578.1 IMMUNIZATIONS No Known Immunizations SOCIAL HISTORY Never Assessed REASON FOR VISIT Returned call PLAN OF CARE VITAL SIGNS MEDICATIONS [...]
--- OUTSIDE RECORDS SUMMARY | 2018-11-26 22:29 | XMS REPORT ---
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 Role Phone ANKITA PERALES Unavailable PROBLEMS Type Condition ICD9-CM Code [id number] Code Onset Dates Condition Status SNOMED Code Problem Hypercalcemia E83.52 Active 85675132 Problem Primary hypertension I10 Active 05742164 Problem Fatigue R53.83 Active 01614853 Problem Hyperlipidemia LDL goal <100 E78.5 Active 63203305 Problem Syncope and collapse R55 Active 281998234 ALLERGIES Substance Reaction Event Type Date Status Zofran ODT Unknown Drug Allergy Apr, Active ENCOUNTERS Encounter Location Date Diagnosis [place] [id number] [place] [address]20- [address] May, Right lateral epicondylitis M77.11 [facility] [id number] [place] [address]17- [address]33 May, [place] [id number] [place] [address] 04064- [address] Apr, [place] [id number] [place] [address] 19763- 2433 Apr, Hypercalcemia E83.52 [facility] [id number] [place] [address] 29189- 4472 Apr, Primary hypertension I10 and Hypercalcemia E83.52 [facility] [id number] [place] [address] 05026- [address] Apr, Primary hypertension I10 ; Lateral epicondylitis of right elbow M77.11 and Hyperlipidemia LDL goal <100 E78.5 [place] [id number] [place] [address] 19348- 4982 February, Essential hypertension I10 ; Pre-diabetes R73.03 ; Hyperlipidemia LDL goal <100 E78.5 and Abnormal EKG R94.31 [place] [id number] [place] [id number] February, [place] [phone]- [address] Jan, Essential hypertension I10 and Syncope and collapse R55 [address] [address] Dec, Chest discomfort R07.89 ; History of elevated blood pressure while in hospital Z86.79 ; Fatigue R53.83 ; Dyspnea R06.00 and Palpitation R00.2 [place] [id number] [place] [address] 33821- 0764 Dec, Chest discomfort R07.89 and History of elevated blood pressure while in hospital Z86.79 [place] [id number] [place] [address] 99686- 9041 February, Hematochezia 578.1 IMMUNIZATIONS No Known Immunizations SOCIAL HISTORY Never Assessed REASON FOR VISIT lab PLAN OF CARE VITAL SIGNS MEDICATIONS Unknown [...]
--- OUTSIDE RECORDS SUMMARY | 2018-11-26 22:31 | XMS REPORT | Continuity of Care Document ---
Author Author [facility] Organization [facility] Address Unknown Phone Unavailable Allergies Active Description Code Type Severity Reaction Onset Reported/Identified Relationship to Patient Clinical Status Yes PHENERGAN PHENERGAN SEVERE Yes PHENERGAN SEVERE ITCHING Yes UNKNOWN ANTI-NAUSEA UNKNOWN ANTI-NAUSEA Mild N/A [...] MD Ot I25.10 ATHSCL HEART DISEASE OF [place] CORONARY 12/16/2015 ZEKE HOPKINS MD Ot N20.2 CALCULUS OF KIDNEY WITH CALCULUS OF URET 12/16/2015 ZEKE HOPKINS MD Ot R06.00 DYSPNEA, UNSPECIFIED 12/16/2015 ZEKE HOPKINS MD Ot R07.89 OTHER CHEST PAIN 12/16/2015 ZEKE HOPKINS MD Ot R94.39 ABNORMAL RESULT OF OTHER CARDIOVASCULAR 12/16/2015 ZEKE HOPKINS MD Ot Z68.37 BODY MASS INDEX (BMI) 37.0-37.9, ADULT 12/16/2015 ZEKE HOPKINS MD, Ot Z82.49 FAMILY HX OF ISCHEM HEART DIS AND OTH DI 01/10/2017 Ruslan Olson 427.81 SINOATRIAL NODE DYSFUNCTION 01/10/2017 Ruslan Olson 780.2 SYNCOPE AND COLLAPSE 01/10/2017 Ruslan Olson R00.1 BRADYCARDIA, UNSPECIFIED 01/10/2017 Ruslan Olson R55 SYNCOPE AND COLLAPSE 02/03/2017 GANESH RODRIGUEZ MD Ot I10 ESSENTIAL (PRIMARY) HYPERTENSION 02/03/2017 MICHAEL KC, GANESH Rader Ot I51.7 CARDIOMEGALY 02/03/2017 MICHAEL KC, GANESH Rader Ot R42 DIZZINESS AND GIDDINESS 02/03/2017 GANESH RODRIGUEZ MD Ot R55 SYNCOPE AND COLLAPSE 12/30/2017 ORALIA, LIDYA [employer] Ot I10 ESSENTIAL (PRIMARY) HYPERTENSION 12/30/2017 ORALIA, LIDYA [employer] Ot M25.531 PAIN IN RIGHT WRIST 12/30/2017 ORALIA, LIDYA [employer] Ot S69.91XA UNSP INJURY OF RIGHT WRIST, HAND AND FIN 12/30/2017 ORALIA, LIDYA [employer] Ot W19.XXXA UNSPECIFIED FALL, INITIAL ENCOUNTER 12/30/2017 ORALIA, LIDYA [employer] Ot Z87.19 PERSONAL HISTORY OF OTHER DISEASES OF 01/01/2018 ORALIA, LIDYA [employer] Ot I10 ESSENTIAL (PRIMARY) HYPERTENSION 01/01/2018 ORALIA, LIDYA [employer] Ot M25.531 PAIN IN RIGHT WRIST 01/01/2018 ORALIA, LIDYA [employer] Ot S69.91XA UNSP INJURY OF RIGHT WRIST, HAND AND FIN 01/01/2018 ORALIA, LIDYA [employer] Ot W19.XXXA UNSPECIFIED FALL, INITIAL ENCOUNTER 01/01/2018 ORALIA, LIDYA [employer] Ot Z87.19 PERSONAL HISTORY OF OTHER DISEASES OF 01/01/2018 ORALIA, LIDYA [employer] Ot I10 ESSENTIAL (PRIMARY) HYPERTENSION 01/01/2018 ORALIA, LIDYA [employer] Ot M25.531 PAIN IN RIGHT WRIST 01/01/2018 ORALIA, LIDYA [employer] Ot S69.91XA UNSP INJURY OF RIGHT WRIST, HAND AND FIN 01/01/2018 ORALIA, LIDYA [employer] Ot W19.XXXA UNSPECIFIED FALL, INITIAL ENCOUNTER 01/01/2018 ORALIA LIDYA [employer] Ot Z87.19 PERSONAL HISTORY OF OTHER DISEASES OF 06/03/2018 Ruslan Olson 592.0 CALCULUS OF KIDNEY 06/03/2018 Ruslan Olson W 599.70 HEMATURIA, UNSPECIFIED 06/03/2018 Ruslan Olson W 789.03 ABDOMINAL PAIN, RIGHT LOWER QUADRANT 06/03/2018 Ruslan Olson N20.0 CALCULUS OF KIDNEY 06/03/2018 Ruslan Olson R10.31 RIGHT LOWER QUADRANT PAIN 06/03/2018 Ruslan Olson R31.9 HEMATURIA, UNSPECIFIED Procedures There is no data. Results Test Result Range Holter Monitor 48 hour - 01/10/17 13:54 Holter Monitor 48 Hour Complete Urinalysis - 01/10/17 15:20 Icotest N/A Negative Urine Volume Urine Volume Sufficient (10mL) Urine-Appearance Clear Clear Urine-Bilirubin Negative Negative Urine-Blood Trace-lysed Negative Urine-Color Yellow Colorless-Lt. Yellow Urine-Glucose Negative Negative Urine-Ketones Negative Negative Urine-Leukocytes Negative Negative Urine-Nitrite Negative Negative Urine-pH 6.0 5-8.5 Urine-Protein Negative Negative Urine-RBC 0-2/HPF Urine-Specific Kendrick 1.015 1.000-1.030 Urobilinogen 0.2 E.U./dL 0.2-1.0 Complete blood count (CBC) with automated white [...] by light microscopy LARGE BERNARDO URATES NRG CBC With Differential/Platelet - 02/22/17 16:44 WBC 7.5 x10E3/uL 3.4-10.8 RBC 5.46 x10E6/uL 4.14-5.80 Hemoglobin 16.5 g/dL 12.6-17.7 Hematocrit 49.7 % 37.5-51.0 MCV 91 fL 79-97 MCH 30.2 pg 26.6-33.0 MCHC 33.2 g/dL 31.5-35.7 RDW 13.3 % 12.3-15.4 Platelets 249 x10E3/uL 150-379 Neutrophils 63 % Lymphs 22 % Monocytes 12 % Eos 2 % Basos 1 % Neutrophils (Absolute) 4.8 x10E3/uL 1.4-7.0 Lymphs (Absolute) 1.7 x10E3/uL 0.7-3.1 Monocytes(Absolute) 0.9 x10E3/uL 0.1-0.9 Eos (Absolute) 0.1 x10E3/uL 0.0-0.4 Baso (Absolute) 0.0 x10E3/uL 0.0-0.2 Immature Granulocytes 0 % Immature Grans (Abs) 0.0 x10E3/uL 0.0-0.1 Comp. Metabolic Panel (14) - 02/22/17 16:44 Glucose, Serum 96 mg/dL 65-99 BUN 11 mg/dL 6-24 Creatinine, Serum 1.06 mg/dL 0.76-1.27 eGFR If NonAfricn Am 84 mL/min/1.73 >59 eGFR If Africn Am 97 mL/min/1.73 >59 BUN/Creatinine Ratio 10 9-20 Sodium, Serum 143 mmol/L 134-144 Potassium, Serum 4.2 mmol/L 3.5-5.2 Chloride, Serum 102 mmol/L 96-106 Carbon Dioxide, Total 24 mmol/L 18-29 Calcium, Serum 11.4 mg/dL 8.7-10.2 Protein, Total, Serum 7.3 g/dL 6.0-8.5 Albumin, Serum 4.4 g/dL 3.5-5.5 Globulin, Total 2.9 g/dL 1.5-4.5 A/G Ratio 1.5 1.2-2.2 Bilirubin, Total 0.7 mg/dL 0.0-1.2 Alkaline Phosphatase, S 132 IU/L 39-117 AST (SGOT) 14 IU/L 0-40 ALT (SGPT) 20 IU/L 0-44 Lipid Panel - 02/22/17 16:44 Cholesterol, Total 201 mg/dL 100-199 Triglycerides 171 mg/dL 0-149 HDL Cholesterol 41 mg/dL >39 VLDL Cholesterol Teodoro 34 mg/dL 5-40 LDL Cholesterol Calc 126 mg/dL 0-99 Hemoglobin A1c - 02/22/17 16:44 Hemoglobin A1c 5.7 % 4.8-5.6 Thyroid [place] Profile - 02/22/17 16:44 TSH 1.590 uIU/mL 0.450-4.500 Magnesium, Serum - 02/22/17 16:44 Magnesium, Serum 2.1 mg/dL 1.6-2.3 CMP - 05/21/18 10:47 GLUCOSE 79 mg/dL 65-139 UREA NITROGEN (BUN) 11 mg/dL 7-25 CREATININE 0.97 mg/dL 0.60-1.35 eGFR NON-AFR. [place] 93 mL/min/1.73m2 > OR=60 eGFR 107 mL/min/1.73m2 > OR=60 BUN/CREATININE RATIO NOT APPLICABLE (calc) 6-22 SODIUM 143 mmol/L 135-146 POTASSIUM 4.1 mmol/L 3.5-5.3 CHLORIDE 109 mmol/L 98-110 CARBON DIOXIDE 28 mmol/L 20-31 CALCIUM 11.0 mg/dL 8.6-10.3 PROTEIN, TOTAL 7.0 g/dL 6.1-8.1 ALBUMIN 4.3 g/dL 3.6-5.1 GLOBULIN 2.7 g/dL (calc) 1.9-3.7 ALBUMIN/GLOBULIN RATIO 1.6 (calc) 1.0-2.5 BILIRUBIN, TOTAL 0.8 mg/dL 0.2-1.2 ALKALINE PHOSPHATASE 109 U/L 40-115 AST 19 U/L 10-40 ALT 24 U/L 9-46 PTH (INTACT) - 05/23/18 08:28 CALCIUM 11.3 mg/dL 8.6-10.3 PARATHYROID HORMONE, INTACT 173 pg/mL 14-64 BMP - 06/03/18 16:24 Anion Gap 14 6-14 BUN 13 mg/dL 5-25 Calcium 11.4 mg/dL 8.3-10.4 Chloride 111 mmol/L 95-114 CO2 21 mEq/L 22-33 Creat 1.07 mg/dL 0.50-1.50 eGFR 74 mL/min/1.73m2 >59 Glucose 102 mg/dL 70-110 Osmo 293 280-295 Potassium 3.9 mmol/L 3.5-5.3 Sodium 142 mmol/L 134-148 Urinalysis - 06/03/18 18:53 Icotest N/A Negative Urine Crystals Calcium Oxalate: few/HPF Urine Volume Urine Volume Sufficient (10mL) Urine Yeast No Yeast present Urine-Appearance Slightly Cloudy Clear Urine-Bacteria Trace Urine-Bilirubin Negative Negative Urine-Blood 2+ Negative Urine-Color Yellow Colorless-Lt. Yellow Urine-Epithelial Cells 5-10/HPF Urine-Glucose Negative Negative Urine-Ketones Negative Negative Urine-Leukocytes Negative Negative Urine-Mucus 4+ Urine-Nitrite Negative Negative Urine-Other Urine Saved if Culture Needed (48hrs from time of collection) Urine-pH 6.0 5-8.5 Urine-Protein Negative Negative Urine-RBC 10-20/HPF Urine-Specific Kendrick >=1.030 1.000-1.030 Urine-WBC 2-5/HPF Urobilinogen 1.0 0.2-1.0 Encounters ACCT No. Visit Date/Time Discharge Status Pt. Type Provider Facility Loc./Unit Complaint [id number] 12/30/2017 19:21:00 12/30/2017 20:32:00 DIS Emergency LIDYA BARTON [facility] ER R WRIST INJ [id number] 03/05/2017 11:15:00 03/05/2017 23:59:59 CLS Preadmit YOHANA NOEL R WOODWORK TEACHER [facility] CARD R55 [id number] 03/05/2017 10:00:00 03/05/2017 23:59:59 CLS Preadmit YOHANA NOEL R WOODWORK TEACHER [facility] CARD I10,R55 [id number] 02/03/2017 09:33:00 02/03/2017 13:51:00 DIS Emergency GANESH RODRIGUEZ MD [facility] ER SYNCOPE [id number] 12/14/2015 11:35:00 12/16/2015 20:08:00 DIS Outpatient KELLIE KC, ZEKE Felder [facility] CATH CHEST PAIN [id number] 04/01/2015 10:03:00 04/01/2015 15:21:00 DIS Emergency SADA RODRIGUEZ MD [facility] ER RIGHT SIDE PAIN [id number] 03/20/2015 10:09:00 03/20/2015 12:38:00 DIS Emergency MARCELLA DAVIS DO [facility] ER VOIDING BLOOD [id number] 01/11/2013 08:35:00 Document Registration [id number] 03/17/2012 12:16:00 Document Registration [id number] 11/19/2018 08:40:00 11/19/2018 23:59:59 CLS Outpatient CLAIRE YU SUDHAKAR L [facility] [id number] 05/23/2018 08:20:00 Document Registration [id number] 05/21/2018 10:00:00 Document Registration [id number] 02/23/2017 14:08:00 Document Registration [id number] 06/03/2018 16:10:00 06/03/2018 19:15:00 DIS Outpatient [facility] ER [id number] 01/10/2017 13:49:00 01/10/2017 23:59:59 CLS Outpatient [facility] ER
[2018-11-26] MEDS ORDERED: KETOROLAC 30 MG/ML VIAL IVP STA (23:02)
[2018-11-26] MEDS ORDERED: NS IV 1000 ML 1,000 ML IV STA (23:02)
[2018-11-26 23:07] LABS: BASOPHILS % (AUTO) 0 % (0-10); EOSINOPHILS # (AUTO) 0.1 10^3/uL (0.0-0.3); EOSINOPHILS % (AUTO) 1 % (0-10); HEMATOCRIT 51 % (40-54); HEMOGLOBIN 16.6 G/DL (13.3-17.7); LYMPHOCYTES # (AUTO) 0.6 X 10^3 (1.0-4.0); LYMPHOCYTES % (AUTO) 6 % (12-44); MEAN CORPUSCULAR HEMOGLOBIN 30 PG (25-34); MEAN CORPUSCULAR HGB CONC 33 G/DL (32-36); MEAN CORPUSCULAR VOLUME 92 FL (80-99); MEAN PLATELET VOLUME 11.3 FL (7.4-10.4); MONOCYTES # (AUTO) 0.7 X 10^3 (0.0-1.0); MONOCYTES % (AUTO) 8 % (0-12); NEUTROPHILS # (AUTO) 8.1 X 10^3 (1.8-7.8); NEUTROPHILS % (AUTO) 86 % (42-75); PLATELET COUNT 218 10^3/uL (130-400); RED CELL DISTRIBUTION WIDTH 13.3 % (10.0-14.5); WHITE BLOOD COUNT 9.5 10^3/uL (4.3-11.0)
[2018-11-26] MEDS ORDERED: ONDANSETRON 4 MG/2 ML (SDV) Z0FRAN IVP ONE (23:15)
[2018-11-26 23:18] LABS: CARBON DIOXIDE 21 MMOL/L (21-32); CHLORIDE 110 MMOL/L (98-107); CREATININE SERUM 0.99 MG/DL (0.60-1.30); POTASSIUM 4.2 MMOL/L (3.6-5.0); SODIUM 141 MMOL/L (135-145)
[2018-11-26 23:19] LABS: ALANINE AMINOTRANSFERASE 36 U/L (0-55); ALBUMIN 4.3 GM/DL (3.2-4.5); ALKALINE PHOSPHATASE 126 U/L (40-136); BILIRUBIN,TOTAL 1.3 MG/DL (0.1-1.0); BUN/CREATININE RATIO 18; CALCIUM 11.3 MG/DL (8.5-10.1); GFR ESTIMATED > 60; GLUCOSE 122 MG/DL (70-105); TOTAL PROTEIN 7.5 GM/DL (6.4-8.2)
--- NOTE | 2018-11-26 23:22 | NUR ---
report given to SUPRIYA Solis
[2018-11-26 23:30] LABS: EOSINOPHILS % (MANUAL) 2 %; LYMPHOCYTES % (MANUAL) 6 %; MONOCYTES % (MANUAL) 8 %; NEUTROPHILS % (MANUAL) 84 %
--- NOTE | 2018-11-26 23:36 | ED GI ---
General Chief Complaint: Abdominal/GI Problems Stated Complaint: VOMITTING,FEVER Nursing Triage Note: Ambulatory to rm 9. Pt reports eating nauruan at 1130 today and then began vomiting, diarrhea, dizziness, and lower abdominal pain at 1330. Sepsis Screen: No Definite Risk Source of Information: Patient Exam Limitations: No Limitations History of Present Illness Date Seen by Provider: Nov 26, 2018 Time Seen by Provider: 23:03 Initial Comments Here with report of nausea, vomiting and diarrhea that started at about 130 today. He reports eating [place] food at 1130 today and then started with the vomiting 2 hours later. That has persisted throughout the day. He ate with 2 other people and they are also not feeling well but not having the symptoms as bad as he is. Denies fevers. Has some lower abdominal cramping that comes and goes. No report of blood in stool or vomit. Values get better this evening but started happening again so he came to the ER. Timing/Duration: 12 Hours Severity/Quality: Moderate, Cramping Location: Generalized Abdomen Radiation: No Radiation Activities at Onset: None Modifying Factors: Worsens With Eating Associated Symptoms: No Back Pain, No Chest Pain, No Diaphoresis, No Fever/ Chills; Nausea/Vomiting; No Shortness of Air, No Weakness Allergies and Home Medications Allergies Uncoded Allergies: UNKNOWN ANTI-NAUSEA (Allergy, Mild, 03/20/15) JITTERY/ANXIOUS possibly phenergan Home Medications Unable to Obtain Active Prescriptions or Reported Meds Patient Home Medication List Home Medication List Reviewed: Yes Review of Systems Review of Systems Constitutional: see HPI; No chills, No fever Respiratory: No Symptoms Reported Cardiovascular: No Symptoms Reported Gastrointestinal: Abdominal Pain, Diarrhea, Nausea, Vomiting Genitourinary: No Symptoms Reported Musculoskeletal: no symptoms reported Skin: no symptoms reported Psychiatric/Neurological: No Symptoms Reported Past [place] Hx Past Med/Social Hx: Reviewed Nursing Past Med/Soc Hx Patient Social History Alcohol Use: Denies Use Recreational Drug Use: No 2nd Hand Smoke Exposure: No Recent Foreign Travel: No Contact w/Someone Who Travel: No Recent Infectious Disease Expo: No Recent Hopitalizations: No (for kidney stones) Physical Abuse: No Sexual Abuse: No Seasonal Allergies Seasonal Allergies: No Past Medical History Surgeries: Yes (BILATERAL INGUINAL HERNIA REPAIR) Abdominal Respiratory: No Cardiac: Yes Heart Murmur, Hypertension Neurological: No Reproductive Disorders: No Sexually Transmitted Disease: No HIV/AIDS: No Gastrointestinal: Yes Gastrointestinal Bleed Musculoskeletal: No Endocrine: No Cancer: No Psychosocial: No Integumentary: No Blood Disorders: No Adverse Reaction/Blood Tranf: No Family Medical History Reviewed Nursing Family Hx Heart Disease Physical Exam Vital Signs Vital Signs - First Documented 11/26/18 22:34 Temp 98.8 Pulse 118 Resp 27 B/P (MAP) 106/88 (94) Pulse Ox 95 O2 Delivery Room Air Capillary Refill : Less Than 3 Seconds Height/Weight/BMI Height: 5'11.00" Weight: 260lbs. 6.4oz. 117.699678uf; 37.37 BMI Method:Stated General Appearance: WD/WN, no apparent distress HEENT: PERRL/EOMI, pharynx normal Neck: full range of motion, supple Respiratory: lungs clear, normal breath sounds Cardiovascular: no murmur, tachycardia Peripheral Pulses: 2+ Dorsalis Pedis (R), 2+ Left Dors-Pedis (L), 2+ Radial Pulses (R), 2+ Radial Pulses (L) Gastrointestinal: normal bowel sounds, soft; No guarding, No rebound; tenderness (mild lower bilateral) Extremities: non-tender, normal inspection Back: normal inspection, no CVA tenderness, no vertebral tenderness Neurologic/Psychiatric: alert, oriented x 3 Skin: normal color, warm/dry Progress/Results/Core Measures Results/Orders Lab Results Laboratory Tests Test 11/26/18 22:53 Range/Units White Blood Count 9.5 4.3-11.0 10^3/uL Red Blood Count 5.55 4.35-5.85 10^6/uL Hemoglobin 16.6 13.3-17.7 G/DL Hematocrit 51 40-54 % Mean Corpuscular Volume 92 80-99 FL Mean Corpuscular Hemoglobin 30 25-34 PG Mean Corpuscular Hemoglobin Concent 33 32-36 G/DL Red Cell Distribution Width 13.3 10.0-14.5 % Platelet Count 218 130-400 10^3/uL Mean Platelet Volume 11.3 H 7.4-10.4 FL Neutrophils (%) (Auto) 86 H 42-75 % Lymphocytes (%) (Auto) 6 L 12-44 % Monocytes (%) (Auto) 8 0-12 % Eosinophils (%) (Auto) 1 0-10 % Basophils (%) (Auto) 0 0-10 % Neutrophils # (Auto) 8.1 H 1.8-7.8 X 10^3 Lymphocytes # (Auto) 0.6 L 1.0-4.0 X 10^3 Monocytes # (Auto) 0.7 0.0-1.0 X 10^3 Eosinophils # (Auto) 0.1 0.0-0.3 10^3/uL Basophils # (Auto) 0.0 0.0-0.1 10^3/uL Neutrophils % (Manual) 84 % Lymphocytes % (Manual) 6 % Monocytes % (Manual) 8 % Eosinophils % (Manual) 2 % Sodium Level 141 135-145 MMOL/L Potassium Level 4.2 3.6-5.0 MMOL/L Chloride Level 110 H 98-107 MMOL/L Carbon Dioxide Level 21 21-32 MMOL/L Anion Gap 10 5-14 MMOL/L Blood Urea Nitrogen 18 7-18 MG/DL Creatinine 0.99 0.60-1.30 MG/DL Estimat Glomerular Filtration Rate > 60 BUN/Creatinine Ratio 18 Glucose Level 122 H 70-105 MG/DL Calcium Level 11.3 H 8.5-10.1 MG/DL Corrected Calcium 11.1 H 8.5-10.1 MG/DL Total Bilirubin 1.3 H 0.1-1.0 MG/DL Aspartate Amino Transf (AST/SGOT) 26 5-34 U/L Alanine Aminotransferase (ALT/SGPT) 36 0-55 U/L Alkaline Phosphatase 126 40-136 U/L Total Protein 7.5 6.4-8.2 GM/DL Albumin 4.3 3.2-4.5 GM/DL My Orders Orders - GANESH RODRIGUEZ MD Cbc With Automated Diff (11/26/18 23:02) Comprehensive Metabolic Panel (11/26/18 23:02) Ondansetron Injection (Zofran Injectio (11/26/18 23:15) Ns Iv 1000 Ml (Sodium Chloride 0.9%) (11/26/18 23:02) Saline Lock/Iv-Start (11/26/18 23:02) Ketorolac Injection (Toradol Injection) (11/26/18 23:02) Manual Differential (11/26/18 22:53) Saline Lock/Iv-Start (11/27/18 00:27) Ns Iv 1000 Ml (Sodium Chloride 0.9%) (11/27/18 00:27) Rx-Ondansetron Po (Rx-Zofran Po) (11/27/18 00:27) Medications Given in ED Current Medications Medications Dose Ordered Sig/Mello Route Start Time Stop Time Status Last Admin Dose Admin Ondansetron HCl 4 mg ONCE ONCE IVP 11/26/18 23:15 11/26/18 23:16 DC 11/26/18 23:12 4 MG Sodium Chloride 1,000 ml @ 0 mls/hr Q0M ONCE IV 11/27/18 00:27 11/27/18 00:28 DC 11/27/18 00:30 0 MLS/HR Vital Signs/I&O 11/26/18 22:34 Temp 98.8 Pulse 118 Resp 27 B/P (MAP) 106/88 (94) Pulse Ox 95 O2 Delivery Room Air Blood Pressure Mean: 94 Progress Progress Note : Progress Note Seen and evaluated. IV, labs, normal saline 1 L bolus, Zofran 4 mg IV and Toradol 30 mg IV ordered. Monitor patient. Repeat normal saline 1 L bolus. Overall patient is feeling better. We will send him home with a go pack of Zofran ODT. 0124: Patient feeling better and fluids Complete. Discharged home with return precautions. Patient verbalize understanding instructions and agreement with plan. Departure Impression Primary Impression: Nausea and vomiting Qualified Codes: R11.2 - Nausea with vomiting, unspecified Additional Impressions: Diarrhea Qualified Codes: R19.7 - Diarrhea, unspecified Generalized abdominal pain Disposition: HOME, SELF-CARE Condition: Improved Departure-Patient Inst. Decision time for Depature: 01:25 Referrals: [facility] (PCP/Family) Primary Care Physician Patient Instructions: Acute Abdomen (Belly Pain), Adult (DC), Diarrhea in Adolescents and Adults, Nausea and Vomiting, Adult (DC) Add. Discharge Instructions: All discharge instructions reviewed with patient and/or family. Voiced understanding. Clear liquid diet for the next 24 hours and then advance as tolerated. Follow-up with your DrTiera in a few days for recheck. Discussed with your doctor regarding your COPD and concerns of sleep apnea. Return for worse pain, fever, vomiting, weakness, breathing problems or other concerns as needed. Scripts Unable to Obtain Active Prescriptions or Reported Meds GANESH RODRIGUEZ MD Nov 26, 2018 23:36
[2018-11-27] MEDS ORDERED: NS IV 1000 ML 1,000 ML IV ONE (00:27)
[2018-11-27] MEDS ORDERED: RX-ONDANSETRON 4 MG ODT (ZOFRAN) PPK #4 PO STA (00:27)
[2018-11-27 01:47] VITALS: BP 114/82
== END 2018-11-27 01:47 | disposition home or self-care (01) ==
LOC: EDUNIT# 22:24 → ER 22:26
DX: R11.2 Nausea with vomiting, unspecified (principal); R19.7 Diarrhea, unspecified; R10.84 Generalized abdominal pain; I10 Essential (primary) hypertension; Z82.49 Family history of ischemic heart disease and other diseases of the circulatory system; Z87.19 Personal history of other diseases of the digestive system; Z98.890 Other specified postprocedural states
CPT/HCPCS: 36415; 80053; 85007; 85027

== ENCOUNTER → 2020-09-27 | Outpatient (CLI) | payer MEDICAID ==
[~2020-09-27] MED LIST changes: -PANT40TA3 PO; +PANT40TA52 PO; +RT-ALBUTEROL SULF 2.5 MG/3 ML PRE-MIX VIAL INH ONE
== END ==
LOC: RT 09:44
PROVIDERS: ATTEND Nurse Practitioner Family
DX: R06.02 Shortness of breath (principal)
CPT/HCPCS: 94060; 94729

== ENCOUNTER 2020-11-17 13:09 | Outpatient (CLI) | payer MEDICAID ==
[~2020-11-17 13:09] MED LIST changes: -RT-ALBUTEROL SULF 2.5 MG/3 ML PRE-MIX VIAL INH ONE
== END 2020-11-17 14:05 | disposition home or self-care (01) ==
LOC: SLEEP 13:09
PROVIDERS: ATTEND Nurse Practitioner Family
DX: G47.10 Hypersomnia, unspecified (principal); R06.81 Apnea, not elsewhere classified

== ENCOUNTER 2021-09-06 17:39 | Emergency (ER) | payer MEDICAID | END 2021-09-06 18:15 | disposition left against medical advice (07) | LOC: EDUNIT# 17:39 → ER 17:41 | DX: R21 Rash and other nonspecific skin eruption (principal); R11.10 Vomiting, unspecified; R19.7 Diarrhea, unspecified ==